=== PATIENT | female | born 1990 | race Caucasian/White ===

== ENCOUNTER → 2022-04-23 10:07 | Outpatient (BNVA) | payer OTHER, SELFPAY | PROVIDERS: Family Provider Family Medicine; PCP Family Medicine; Visit Provider Obstetrics & Gynecology | DX: Z12.4 Encounter for screening for malignant neoplasm of cervix (principal) | CPT/HCPCS: 87624 ==

== ENCOUNTER 2022-06-26 07:32 | Oncology outpatient (recurring) (ONCR) | payer OTHER, SELFPAY | END 2022-07-06 23:59 | disposition home or self-care (01) | PROVIDERS: Family Provider Family Medicine; PCP Family Medicine; Visit Provider Internal Medicine Medical Oncology | DX: D75.1 Secondary polycythemia (principal); D72.829 Elevated white blood cell count, unspecified; R53.83 Other fatigue | CPT/HCPCS: 36415; 80053; 81270; 82668; 82728; 83540; 83550; 83615; 85025; 88374 ==

== ENCOUNTER 2022-11-08 11:42 | Oncology outpatient (recurring) (ONCR) | payer OTHER, SELFPAY ==
[2022-11-08 12:27] LABS: Basophils # 0.1 10^3/uL (0.0-0.1); Basophils % 0.4 %; Eosinophils # 0.1 10^3/uL (0.0-0.8); Eosinophils % 0.7 %; Hematocrit 50.2 % (37.0-47.0); Hemoglobin 16.8 g/dL (11.5-15.3); Lymphocytes # 2.2 10^3/uL (0.8-4.8); Lymphocytes % 18.9 %; Mean Corpuscular HGB Conc 33.5 g/dL (30.0-36.0); Mean Corpuscular Hemoglobin 29.5 pg (28.0-34.0); Mean Corpuscular Volume 88.2 fl (81-99); Monocytes # 0.6 10^3/uL (0.2-0.9); Monocytes % 5.4 %; Neutrophils # 8.55 10^3/uL (1.8-7.7); Neutrophils % 73.9 %; Nucleated Red Blood Cells % 0 %; Platelet Count 320 10^3/cmm (130-400); Red Blood Count 5.69 10^6/uL (4.1-5.3); Red Cell Distribution Width 13.3 % (12.1-15.1); White Blood Count 11.6 10^3/uL (4.0-10.0)
[2022-11-08 12:44] LABS: Alanine Aminotransferase 12 U/L (0-33); Alkaline Phosphatase 65 U/L (35-105); Anion Gap 11.9 (5-19); Aspartate Amino Transferase 22 U/L (0-32); Blood Urea Nitrogen 11 mg/dL (6-20); Calcium 9.5 mg/dL (8.5-10.5); Carbon Dioxide 27 mmol/L (22-29); Chloride 106 mmol/L (98-107); Ferritin 5 ng/mL (15-150); Globulin 3.4 g/dL (1.3-4.6); Glomerular Filtration Rate 115.9 mL/min (90-130); Glucose 113 mg/dL (65-115); Iron 106 ug/dL (37-145); Osmolality Calculated 292 mOsm/kg (285-295); Percent Saturation 41.5 % (20-50); Potassium 3.9 mmol/L (3.5-5.1); Sodium 141 mmol/L (136-145); Total Bilirubin 0.4 mg/dL (0.15-1.2); Total Iron Binding Capacity 255 mcg/dl; Total Protein 7.4 g/dL (6.6-8.7); Unsaturated Iron Binding 149 ug/dL (112-347)
== END 2022-12-04 23:59 | disposition home or self-care (01) ==
PROVIDERS: PCP Nurse Practitioner Family; Visit Provider Internal Medicine Medical Oncology
DX: D75.1 Secondary polycythemia (principal); D72.829 Elevated white blood cell count, unspecified
CPT/HCPCS: 36415; 80053; 81256; 82728; 83540; 83550; 85025

== ENCOUNTER → 2023-07-06 10:30 | Outpatient (BNVA) | payer OTHER, SELFPAY | PROVIDERS: PCP Nurse Practitioner Family; Visit Provider Registered Nurse Neonatal Intensive Care | DX: M79.672 Pain in left foot (principal) | CPT/HCPCS: 73630 ==

== ENCOUNTER → 2023-08-07 08:38 | Outpatient (BNVA) | payer OTHER, SELFPAY | PROVIDERS: PCP Nurse Practitioner Family; Visit Provider Podiatrist Foot & Ankle Surgery | DX: M72.2 Plantar fascial fibromatosis; M76.72 Peroneal tendinitis, left leg | CPT/HCPCS: 73630 ==